=== PATIENT | male | born 1985 | race African-American/Black ===

== ENCOUNTER 2022-03-27 16:26 | Emergency (ER) | payer MEDICAID ==
[~2022-03-27] VITALS: Ht 175.3 cm; Wt 71.9 kg
--- NOTE | 2022-03-27 16:50 | NUR ---
PT TO WILL[facility]
[2022-03-27 16:59] VITALS: BP 139/84
[2022-03-27 17:48] LABS: BASOPHILS % (AUTO) 0.2 % (0.0-2.0); EOSINOPHILS # (AUTO) 0.1 K/uL (0-0.4); HEMATOCRIT 46.4 % (36-52); HEMOGLOBIN 15.7 g/dL (12.0-18.0); LYMPHOCYTES # (AUTO) 2.4 K/uL (2.0-11.5); LYMPHOCYTES % (AUTO) 15.5 % (20.5-51.1); MEAN CORPUSCULAR HEMOGLOBIN 30 pg (27-31); MEAN CORPUSCULAR HGB CONC 34 g/dL (33-37); MEAN CORPUSCULAR VOLUME 89.9 fL (80-94); MONOCYTES # (AUTO) 0.9 K/uL (0.8-1.0); NEUTROPHILS % (AUTO) 77.3 % (42.2-75.2); PLATELET COUNT (AUTO) 342 K/uL (140-450); RED BLOOD CELL COUNT(AUTO) 5.15 MIL/uL (4.20-6.10); RED CELL DISTRIBUTION WIDTH 13.3 % (11.6-13.7); WHITE BLOOD COUNT (AUTO) 15.5 K/uL (4.8-10.8)
[2022-03-27 18:08] LABS: ALBUMIN 4.2 g/dL (3.4-5.0); ANION GAP 13.1 (8-16); CARBON DIOXIDE 29.7 mmol/L (21-32); POTASSIUM 3.8 mmol/L (3.5-5.1); TOTAL BILIRUBIN 0.7 mg/dL (0.0-1.0)
[2022-03-27] MEDS ORDERED: KETOROLAC 15 MG/ML VIAL IVP ONE (18:10)
[2022-03-27] MEDS ORDERED: NACL 0.9% 2,000 ML IV ONE (18:10)
--- NOTE | 2022-03-27 18:30 | NUR ---
36 y/o male, c/o abd pain radiates to left flank area, pt states he has been working outside in heat for 1 month and states he is feeling very dehydrated. a&o x4 with even and steady gait. pt denies dysuria, hematuria, urinary frequency or retention, or anyone sick in the household with the same symptoms. pt denies any fever, cp, sob, or cough at this time. pt states pain is 5/10 at this time. ermd made aware of pt. pmh: denies allergy: benadryl med: denies
[2022-03-27] MEDS ORDERED: LID5T TP (19:23)
[2022-03-27] MEDS ORDERED: NAPR-54 PO (19:23)
[2022-03-27] MEDS ORDERED: HYDROcodone/APAP 5/325 MG 1 TAB TAB PO ONE (20:00)
--- NOTE | 2022-03-27 20:43 | NUR ---
STATED PAIN IN THE STOMACH AND BACK 10 AFTER NORCO AND TORADOL GIVEN
[2022-03-27 20:44] VITALS: BP 130/75
--- NOTE | 2022-03-27 20:47 | NUR ---
Patient discharged with v/s stable BY ERMD. Written and verbal after care instructions given and explained to parent/guardian. Parent/Guardian verbalized understanding. Ambulatorysteady gait. All questions addressed prior to discharge. Advised to follow up with PMD.
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
== END 2022-03-27 20:47 | disposition home or self-care (01) ==
LOC: MED 16:26
DX: R10.9 Unspecified abdominal pain (principal); R11.0 Nausea
CPT/HCPCS: 36415; 80053; 81002; 85025; 96361; 96374; 99283; J1885; J7030

== ENCOUNTER 2022-05-15 13:22 | Emergency (ER) | payer BC, MEDICAID ==
[~2022-05-15] VITALS: Ht 172.7 cm; Wt 70.3 kg
[~2022-05-15 13:22] MED LIST: LID5T TP; NAPR-54 PO
--- NOTE | 2022-05-15 13:26 | NUR ---
ATTEMPTED TO CALL TO TRIAGE NO ANSWER IN LOBBY OR OUTSIDE
[2022-05-15 13:37] VITALS: BP 146/72
--- NOTE | 2022-05-15 14:23 | NUR ---
Pt ambulated to bed 01.
[2022-05-15] MEDS ORDERED: ONDANSETRON 4 MG/2 ML VIAL IVP ONE (14:35)
[2022-05-15] MEDS ORDERED: KETOROLAC 30 MG/ML VIAL IVP ONE (14:35)
[2022-05-15 15:44] LABS: BASOPHILS # (AUTO) 0.1 K/uL (0.00-0.22); BASOPHILS % (AUTO) 0.5 % (0.0-2.0); EOSINOPHILS # (AUTO) 0.1 K/uL (0-0.4); EOSINOPHILS % (AUTO) 0.8 % (0.0-4.0); HEMATOCRIT 41.8 % (36-52); LYMPHOCYTES # (AUTO) 2.6 K/uL (2.0-11.5); LYMPHOCYTES % (AUTO) 15.4 % (20.5-51.1); MEAN CORPUSCULAR HEMOGLOBIN 30 pg (27-31); MEAN CORPUSCULAR HGB CONC 34 g/dL (33-37); MEAN CORPUSCULAR VOLUME 89.7 fL (80-94); MONOCYTES % (AUTO) 6.2 % (1.7-9.3); NEUTROPHILS % (AUTO) 77.1 % (42.2-75.2); PLATELET COUNT (AUTO) 344 K/uL (140-450); RED BLOOD CELL COUNT(AUTO) 4.67 MIL/uL (4.20-6.10); RED CELL DISTRIBUTION WIDTH 13.4 % (11.6-13.7)
--- NOTE | 2022-05-15 15:49 | NUR ---
DR COLLIER AT BEDSIDE
[2022-05-15] MEDS ORDERED: MORPHINE SULFATE 4 MG/ML SYR IVP ONE (15:50)
[2022-05-15 16:03] LABS: ALBUMIN 3.6 g/dL (3.4-5.0); ANION GAP 16.1 (8-16); CARBON DIOXIDE 28.7 mmol/L (21-32); POTASSIUM 3.8 mmol/L (3.5-5.1); TOTAL BILIRUBIN 0.8 mg/dL (0.0-1.0)
--- NOTE | 2022-05-15 16:06 | NUR ---
X-Ray at bedside.
[2022-05-15 18:34] LABS: WHITE BLOOD COUNT (AUTO) 16.8 K/uL (4.8-10.8)
--- NOTE | 2022-05-15 19:25 | NUR ---
Endorsement: Received report from ANDERSON FERRER.
[2022-05-15] MEDS ORDERED: IBUP-2213 PO (21:36)
[2022-05-15] MEDS ORDERED: ACET-8386 PO (21:36)
[2022-05-15 22:00] VITALS: BP 122/90
--- NOTE | 2022-05-15 22:10 | NUR ---
D/C Home. Patient discharged with v/s stable. Written and verbal after care instructions given and explained. Patient alert, oriented and verbalized understanding of instructions. All questions addressed prior to discharge. ID band removed. Patient advised to follow up with PMD and specialist. Rx of Ibuprofen/ hydrocodone/acetaminophen 325 given. Patient educated on indication of medication including possible reaction and side effects. Opportunity to ask questions provided and answered.
== END 2022-05-15 22:10 | disposition home or self-care (01) ==
LOC: MED 13:22
DX: R19.00 Intra-abdominal and pelvic swelling, mass and lump, unspecified site (principal); Z20.822 Contact with and (suspected) exposure to COVID-19; Z98.890 Other specified postprocedural states
CPT/HCPCS: 36415; 71045; 74176; 80053; 83690; 85025; 87426; 93005; 96374; 96375; 99285; J1885; J2270; J2405